=== PATIENT | male | born 1935 | race Caucasian/White ===

== ENCOUNTER 2019-01-04 09:16 | Emergency (ER) | payer MEDICARE, MEDICAID ==
[2019-01-04] MEDS ORDERED: Sodium Chloride 0.9% 10 ML Syringe FLUSH PRN (10:13)
[2019-01-04] MEDS ORDERED: Sodium Chloride 0.9% 1,000 ML IV SCH (10:15)
--- NOTE | 2019-01-04 11:45 | EDM.PDOC ---
ED HPI GENERAL MEDICAL PROBLEM - General Chief Complaint: CPR in Progress Stated Complaint: [facility] Time Seen by Provider: 01/04/19 09:22 Source of Information: Reports: EMS, Family, RN Notes Reviewed - History of Present Illness INITIAL COMMENTS - FREE TEXT/NARRATIVE: 83-year-old male has been brought in by [id number] ambulance in cardiac arrest. The call went out to [facility] ambulance around 8:45 or very shortly after that. His states that she had seen him get up for the morning and he seemed to be doing okay. He does use oxygen at night and had used it last night as usual. His O2 sat readings were okay so she states he took the oxygen off, went to the kitchen to start preparing breakfast. When she did go to the kitchen a short time later he was on the kitchen floor unresponsive and not breathing. She did call 911 immediately. She was not able to start CPR not really knowing what to do. Upon police and EMS arrival he was not breathing and there was no pulse. CPR was started, bus monitor showed asystole. IV access was obtained and he was given a total of 3 mg epi IV prior to arrival to the ED. He also was given one amp of bicarbonate. The last rhythm check prior to ED arrival was still asystole. At no time did they get a palpable spontaneous pulse. He arrived with Phu airway in place. His and family states that he does have history of known heart disease. He did have bypass surgery many years ago. 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 Family states that he is on a blood thinner in addition to his other regular meds. His was not aware of him having chest or abdominal pain this morning. He has not been noticeably any more short of breath than usual. - Related Data Allergies Allergy/AdvReac Type Severity Reaction Status Date / Time No Known Allergies Allergy Verified 01/30/18 15:17 Home Meds: Home Meds Clopidogrel [Plavix] 75 mg PO DAILY 01/30/18 [History] Furosemide [Lasix] 20 mg PO DAILY 01/30/18 [History] Glipizide. 10 mg PO BID 01/30/18 [History] Isosorbide Mononitrate [Imdur] 60 mg PO BID 01/30/18 [History] Metoprolol Succinate 100 mg PO DAILY 01/30/18 [History] Nitroglycerin [Nitrostat] 1 tab SL ASDIRECTED PRN 01/30/18 [History] Omeprazole 20 mg PO DAILY 01/30/18 [History] Pravastatin [Pravachol] 40 mg PO BEDTIME 01/30/18 [History] Tamsulosin [Flomax] 0.4 mg PO DAILY 01/30/18 [History] amLODIPine Besylate/Benazepril [Amlodipine-Benazepril 10-20 MG] 1 cap PO DAILY 01/30/18 [History] Saccharomyces Boulardii [Florastor] 250 mg PO BID@0900,1800 #10 cap 02/04/18 [Rx ] levoFLOXacin [Levaquin] 250 mg PO Q24H #4 tablet 02/04/18 [Rx] Past Medical History HEENT History: Reports: Cataract, Hard of Hearing, Impaired Vision, Other (See Below) 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 Cardiovascular History: Reports: CAD, Hypertension, Stents Respiratory History: Reports: PE, SOB Other Respiratory History: dx of PE and Pneumonia Gastrointestinal History: Reports: GERD Musculoskeletal History: Reports: Gout Endocrine/Metabolic History: Reports: Diabetes, Type II Hematologic History: Reports: None - Infectious Disease History Infectious Disease History: Reports: Chicken Pox, Measles, Mumps - Past Surgical History HEENT Surgical History: Reports: None Cardiovascular Surgical History: Reports: Coronary Artery Bypass Respiratory Surgical History: Reports: None GI Surgical History: Reports: Appendectomy, Colonoscopy, EGD Endocrine Surgical History: Reports: None Musculoskeletal Surgical History: Reports: Other (See Below) Other Musculoskeletal Surgeries/Procedures:: plate in left hip since child Social & Family History - Family History Family Medical History: Noncontributory - Caffeine Use Caffeine Use: Reports: Coffee ED ROS GENERAL - Review of Systems Review Of Systems: Unable To Obtain ED EXAM, CPR - Physical Exam Exam: See Below General Appearance: Other (Bagged respirations with Phu airway, Compressions with automated "thumper") Eye Exam: Bilateral Eye: PERRL (pupils are mildly dilated, nonreactive) Ears: Normal External Exam Nose: Normal Inspection Throat/Mouth: Other (Phu airway in place) Head: Atraumatic Neck: Other (without JVD) Respiratory Chest: Other (good breath sounds bilat with bagged resp. ) Cardiovascular: Pulse with Compression (good femoral pulses with compressions) Extremities: No: Pedal Edema Skin Exam: Cool, Pallor Course - Orders/Labs/Meds Orders: Active Orders 24 hr Category Date Time Status Peripheral IV Care [RC] . DIRECTED Care 01/04/19 10:14 Active Sodium Chloride 0.9% [Normal Saline] 1,000 ml Med 01/04/19 10:15 Active IV ONETIME Sodium Chloride 0.9% [Saline Flush] Med 01/04/19 10:13 Active 10 ml FLUSH ASDIRECTED PRN Peripheral IV Insertion Adult [OM.PC] Stat Oth 01/04/19 10:13 Ordered Medication Orders Sodium Chloride (Normal Saline) 1,000 mls @ 999 mls/hr IV ONETIME ELIGIO Sodium Chloride (Saline Flush) 10 ml FLUSH ASDIRECTED PRN PRN Reason: Keep Vein Open Meds: Medications Generic Name Dose Route Start Last Admin Trade Name Freq PRN Reason Stop Dose Admin Sodium Chloride 1,000 mls @ 999 mls/hr 01/04/19 10:15 Normal Saline IV ONETIME ELIGIO Sodium Chloride 10 ml 01/04/19 10:13 Saline Flush FLUSH ASDIRECTED PRN Keep Vein Open - Re-Assessments/Exams Free Text/Narrative Re-Assessment/Exam: 01/04/19 10:10. As noted patient had 3 one mg doses of epinephrine [employer], 1 amp of bicarb IV, getting IV fluid wide open. At no time did EMS get a palpable pulse or ROSC. When compressions stopped for a pulse check after arrival to ED we did see about 15 seconds of marrow complex rythm that promptly went to asystole. No pulses palpable. No heart tones or any respiratory effort. Pupils mildly dilated, nonreactive. Patient arrived to ED about 34 minutes after call went out to EMS. It is estimated that he was down for at least a few minutes, likely somewhat more before his found him unresponsive on the floor. stated intial rythm for EMS asystole. With at least 35 to 40 minutes of time since initial arrest and asysole presenting and ending rythm CPR stopped at 09:19. With no prior chest pain, difficulty breathing, or other warning symptoms it is most likely that he suffered cardiac arrythmia, V fibrillation being the most likely with sudden onset and imediate collapse. This has been discussed with family and Dr [facility] who does know patient and family very well. No autopsy indicated. Family would also prefer autopsy not be done. Departure - Departure Time of Disposition: 19:00 Disposition: 20 Preliminary Cause of *Q: Cardiac Arrest Clinical Impression: Cardiac arrest Cardiac arrhythmia Qualifiers: Arrhythmia type: unspecified cardiac arrhythmia Qualified Code(s): I49.9 - Cardiac arrhythmia, unspecified - Discharge Information Referrals: Lawrence Baltazar MD [Primary Care Provider] - Forms: ED Department Discharge - My Orders Last 24 Hours: My Active Orders 01/04/19 10:13 Sodium Chloride 0.9% [Saline Flush] 10 ml FLUSH ASDIRECTED PRN Peripheral IV Insertion Adult [OM.PC] Stat 01/04/19 10:14 Peripheral IV Care [RC] . DIRECTED 01/04/19 10:15 Sodium Chloride 0.9% [Normal Saline] 1,000 ml IV ONETIME - Assessment/Plan Last 24 Hours: My Active Orders 01/04/19 10:13 Sodium Chloride 0.9% [Saline Flush] 10 ml FLUSH ASDIRECTED PRN Peripheral IV Insertion Adult [OM.PC] Stat 01/04/19 10:14 Peripheral IV Care [RC] . DIRECTED 01/04/19 10:15 Sodium Chloride 0.9% [Normal Saline] 1,000 ml IV ONETIME
== END 2019-01-04 11:25 | disposition expired ==
LOC: JD.ED 09:16
DX: I46.9 Cardiac arrest, cause unspecified (principal); I49.9 Cardiac arrhythmia, unspecified; I10 Essential (primary) hypertension; E11.9 Type 2 diabetes mellitus without complications; I25.10 Atherosclerotic heart disease of native coronary artery without angina pectoris; K21.9 Gastro-esophageal reflux disease without esophagitis; M10.9 Gout, unspecified; Z79.02 Long term (current) use of antithrombotics/antiplatelets; Z79.899 Other long term (current) drug therapy
CPT/HCPCS: 92950; 99285-25